=== PATIENT | female | born 1995 | race Asian ===

== ENCOUNTER 2018-12-10 14:22 | Emergency (ER) | payer OTHER ==
[~2018-12-10] VITALS: Ht 157.5 cm; Wt 54.1 kg
--- NOTE | 2018-12-10 14:37 | NUR ---
pt presented to ed with multiple compalaints. pt stated she was diagnosed with the flu 1 week ago. pt stated she has been dizzy and has had asthma complications. pt with clear lungs and oxygen saturation 100% on ra. pt states her wound site has been painful x 1 year. pt placed in room and placed on bp and cont. pulse oximeter. assesment completed and lab at bedside
[2018-12-10 14:48] LABS: BASOPHILS # (AUTO) 0.04 x10^3/uL (0-0.1); BASOPHILS % (AUTO) 0 % (0-1); EOSINOPHILS # (AUTO) 0.18 x10^3/uL (0-0.4); EOSINOPHILS % (AUTO) 1 % (1-7); LYMPHOCYTES # (AUTO) 1.68 x10^3/uL (1-3.4); LYMPHOCYTES % (AUTO) 13 % (22-44); MD NO; MEAN CORPUSCULAR HEMOGLOBIN 29.7 pg (27.0-34.8); MEAN CORPUSCULAR HGB CONC 34.2 g/dL (32.4-35.8); MEAN CORPUSCULAR VOLUME 86.7 fL (80-100); MEAN PLATELET VOLUME 7.8 fL (7.4-10.4); MONOCYTES % (AUTO) 7 % (2-9); NEUTROPHILS # (AUTO) 9.68 x10^3/uL (1.8-6.8); NEUTROPHILS % (AUTO) 78 % (42-75); PLATELET COUNT 286 x10^3/uL (130-400); RED BLOOD COUNT 4.75 x10^6/uL (3.82-5.3); RED CELL DISTRIBUTION WIDTH 14.7 % (9.6-15.2)
[2018-12-10 14:57] LABS: ALANINE AMINOTRANSFERASE 17 U/L (12-78); ALBUMIN 3.5 g/dL (3.4-5.0); ANION GAP 7 mmol/L (5-15); CALCIUM 8.3 mg/dL (8.5-10.1); CHLORIDE 109 mmol/L (98-107)
[2018-12-10 15:15] LABS: ALKALINE PHOSPHATASE 60 U/L (45-117); BILIRUBIN,TOTAL 0.2 mg/dL (0.2-1.0); TOTAL PROTEIN 7.3 g/dL (6.4-8.2)
[2018-12-10 15:23] LABS: MICROSCOPIC INDICATED
[2018-12-10] MEDS ORDERED: ACETAMINOPHEN 325 MG TABLET ONE (15:23)
[2018-12-10 15:24] LABS: CULTURE INDICATED? YES
[2018-12-10] MEDS ORDERED: NITROFURANTOIN (MACROBID) 100 MG CAPSULE PO ONE (15:30)
[2018-12-10] MEDS ORDERED: ACETAMINOPHEN 325 MG TABLET PO ONE (15:30)
[2018-12-10 15:40] VITALS: BP 124/72
--- NOTE | 2018-12-10 15:50 | NUR ---
Latasha ferris in ED - 12/10/18 at 1557 by CHRIS Patient/Caregiver given discharge instructions and they have confirmed that they understand the instructions. Patient ambulatory with steady gait.
[2018-12-10] MEDS ORDERED: NITROFURANTOIN (MACROBID) 100 MG CAPSULE ONE (15:53)
--- NOTE | 2018-12-10 16:17 | NUR ---
Patient/Caregiver given discharge instructions and they have confirmed that they understand the instructions. Patient ambulatory with steady gait.
== END 2018-12-10 15:51 | disposition home or self-care (01) ==
LOC: ED 14:48
DX: N30.00 Acute cystitis without hematuria (principal); J45.909 Unspecified asthma, uncomplicated
CPT/HCPCS: 36415; 80053; 81001; 83690; 84703; 85025; 87086; 99283